=== PATIENT | male | born 2000 | race African-American/Black ===

== ENCOUNTER 2019-03-09 12:17 | Emergency (ER) | payer OTHER ==
[~2019-03-09] VITALS: Ht 172.7 cm; Wt 95.0 kg
[2019-03-09] MEDS ORDERED: IBUPROFEN 800MG TABLET PO ONE (12:30)
[2019-03-09 14:13] VITALS: BP 112/84
== END 2019-03-09 14:22 | disposition home or self-care (01) ==
LOC: ER 12:17
DX: M25.512 Pain in left shoulder (principal)
CPT/HCPCS: 73030; 99283